=== PATIENT | female | born 1935 | race Caucasian/White ===

== ENCOUNTER → 2018-08-13 | Outpatient (CLI) | payer MEDICARE, OTHER | END | disposition home or self-care (01) | LOC: HKI 15:04 | DX: Z09 Encounter for follow-up examination after completed treatment for conditions other than malignant neoplasm (principal); I10 Essential (primary) hypertension; F32.9 Major depressive disorder, single episode, unspecified; Z85.3 Personal history of malignant neoplasm of breast; Z96.652 Presence of left artificial knee joint | CPT/HCPCS: 73562; 73562-50 ==

== ENCOUNTER → 2018-11-12 | Outpatient (CLI) | payer MEDICARE, OTHER | END | disposition home or self-care (01) | LOC: HKI 10:27 | DX: M25.561 Pain in right knee (principal); Z96.653 Presence of artificial knee joint, bilateral; M79.7 Fibromyalgia; M76.31 Iliotibial band syndrome, right leg | CPT/HCPCS: 73562; 73562-50 ==